=== PATIENT | female | born 1975 | race Caucasian/White ===

== ENCOUNTER 2021-01-30 13:38 | Outpatient (REF) | payer OTHER, SELFPAY | END 2021-01-30 13:39 | disposition home or self-care (01) | LOC: HO.LAB 13:38 | PROVIDERS: PCP Internal Medicine; Visit Provider Internal Medicine | DX: Z20.822 Contact with and (suspected) exposure to COVID-19 (principal) | CPT/HCPCS: C9803; U0003; U0005 ==

== ENCOUNTER 2021-05-23 08:07 | Outpatient (REF) | payer OTHER, SELFPAY ==
[2021-05-23 08:20] LABS: COVID-19 Test Positive (Negative); IDNOW Serial# 16C4AD1C
== END 2021-05-23 08:08 | disposition home or self-care (01) ==
LOC: HO.LAB 08:07
PROVIDERS: Visit Provider Internal Medicine
DX: Z20.822 Contact with and (suspected) exposure to COVID-19 (principal)
CPT/HCPCS: 36415; 87635; C9803

== ENCOUNTER 2021-05-31 11:56 | Outpatient (REF) | payer OTHER, SELFPAY | END 2021-05-31 11:57 | disposition home or self-care (01) | LOC: HO.LAB 11:56 | PROVIDERS: Visit Provider Internal Medicine | DX: Z20.822 Contact with and (suspected) exposure to COVID-19 (principal) | CPT/HCPCS: C9803; U0003; U0005 ==

== ENCOUNTER 2022-04-08 17:35 | Emergency (ER) | payer OTHER, SELFPAY ==
--- NOTE | ~2022-04-08 | CT_ITS ---
EXAMINATION: CT SHOULDER WITHOUT CONTRAST, RIGHT CLINICAL INFORMATION: Suspected fracture of the humerus on plain film. CT recommended. COMPARISON: Plain film exam of the right shoulder today TECHNIQUE: Axial images obtained through the right shoulder. Coronal and sagittal reformatted images performed at CT scanner. This CT examination was performed using dose optimization techniques as appropriate, variously including the following: *Automated exposure control *Adjustment of mA and/or kV according to patient size (this includes techniques or standardized protocols for targeted exams where dose is matched to indication/reason for exam; i.e. extremities or head) *Use of iterative reconstruction technique DLP: 286 mGy-cm FINDINGS: There is a nondisplaced fracture through the base of the greater tuberosity of the right proximal humerus correlating to findings of plain film. No additional fracture. No dislocation. Small volume of fluid in the shoulder joint likely related to the fracture. There is an old healed fracture with callus formation of the anterior right lateral second through fifth ribs. Chronic old changes of corticated osseous densities adjacent to the distal right clavicle. No acute abnormality of the acromioclavicular joint. CT/CT shoulder RT wo IV con IMPRESSION: Nondisplaced fracture through the base of the greater tuberosity of the right proximal humerus.
--- NOTE | ~2022-04-08 | XR_ITS ---
EXAMINATION: XR SHOULDER, RIGHT CLINICAL INFORMATION: Trauma to the shoulder. Pain. COMPARISON: Right shoulder 02/09/2020, 08/27/2017 TECHNIQUE: 4 views. of the right shoulder. FINDINGS: Small faint radiolucent line suspicious for a nondisplaced fracture through the base of the greater tuberosity of the humeral head. No dislocation. Chronic changes of the distal clavicle with 2 corticated densities, 1 inferior and the other superior to the distal clavicle. No acute abnormality of the acromioclavicular joint XR/XR shoulder RT min 2V IMPRESSION: Suspect the presence of a nondisplaced fracture through the base of the greater tuberosity of the humeral head. CT would be helpful for further definition of the fracture.
[2022-04-08 18:36] VITALS: BP 121/49; PULSE 97; RESP 18; TEMP 37.1; O2SAT 97; BMI 23.8
--- NOTE | 2022-04-08 20:45 | ED.EXTPRO ---
HPI - Extremity Problem General Chief complaint: Extremity Injury, Upper Stated complaint: dislocated R shoulder? Time Seen by Provider: 04/08/22 20:44 Source: patient Mode of arrival: ambulatory Limitations: no limitations History of Present Illness HPI Narrative: 46-year-old female presents for evaluation of severe right shoulder and arm pain after walking her dog. Her dog pulled on the leash, leash wrapped around her arm, and since that injury patient is unable to move her arm. She does not describe any loss of sensation or loss of hand strength. She does not report any other injuries or medical complaints. MD Complaint: extremity pain Onset (ago): hour(s) (Within the hour of arrival) Pain Consistency: constant Location: right and upper extremity Severity scale (1-10): 8 Quality: aching Radiation: distal Relieving factors: rest Exacerbating factors: range of motion and palpation Associated symptoms: denies other symptoms Related Data Previous Rx's Medication Instructions Recorded oxycodone 5 mg tablet 5 mg PO Q6H PRN pain #14 tabs 04/08/22 Allergies Allergy/AdvReac Type Severity Reaction Status Date / Time No Known Allergies Allergy Unverified 02/25/20 15:13 Review of Systems Review of Systems: Constitutional: No Fever, No Chills ENT/Mouth: No Ear Pain, No Hoarseness, No sore throat Eyes: No Eye Pain, No Swelling, No Redness, No Foreign Body Cardiovascular: No Chest Pain, No SOB Respiratory: No Cough, No Dyspnea Gastrointestinal: No Nausea, No Vomiting, No Diarrhea, No abdominal Pain Genitourinary: No Dysuria, No Hematuria Musculoskeletal: positive right shoulder pain, No Myalgias, No Joint Swelling Skin: No Skin lacerations, No rash Neuro: No Weakness, No Numbness, No Paresthesias, No Loss of Consciousness, No Dizziness, No Headache Psych: No Anxiety/Panic, No Depression Heme/Lymph: no easy bruising, no Lymphadenopathy Endocrine: No Polyuria, No Polydipsia Yes all other systems are reviewed and are negative [facility] Past Medical History Attestation statement: The following information was validated with the patient. Source: old records reviewed Social History Social History Advance Directives: No Advance Directives Information Provided: No Physical Exam Vital Signs: Vital Signs: Last Vital Signs Temp 98.8 F 04/08/22 18:36 Pulse 97 04/08/22 18:36 Resp 18 04/08/22 18:36 BP 121/49 L 04/08/22 18:36 Pulse Ox 97 04/08/22 18:36 O2 Del Method 04/08/22 18:36 BMI result Body Mass Index 23.8 Appearance: Alert. Oriented X3. Moderate distress. Eyes: Pupils equal, round and reactive to light. ENT: Pharynx normal. Neck: Normal inspection. Neck supple. CVS: Normal heart rate and rhythm. Pulses normal. Respiratory: No respiratory distress. Breath sounds normal. Abdomen: Soft and nontender. Skin: Skin warm and dry. Normal skin color. Normal skin turgor. Extremities: Decreased active and passive range of motion to the right upper extremity. Tenderness at the acromion process, no clavicular pain to palpation. No crepitus. [employer] Systems Administrator strengths are bilaterally equal, radial pulse and capillary refill equal bilaterally. Neuro: No motor deficit. No sensory deficit. Cranial nerves 2-12 intact. Course Course Course Narrative: 46-year-old female presents for injury sustained while walking her dog. The dog pulled her arm and then the leash end up dropping up around her arm. She has had a difficult time raising her arm, and has had to support with the other arm for comfort. She is neurovascularly intact, has decreased active range of motion, all passive range of motion is painful, range of motion pain radiates to from the acromion process down to the olecranon. Significant tenderness with minimal palpation to the acromion process and proximal humerus, no tenderness to the clavicle or scapula. X-rays completed while patient was the emergency department waiting room, there is a suspicion of a hairline fracture through the greater tuberosity of the humerus. CT scan was recommended. I did discuss these findings with the patient, who agrees to CT scan. At this time will order sling for suspected proximal humerus fracture and possible rotator cuff injury. 22:45 CT scan indicates nondisplaced fracture through the base of the greater tuberosity of the right proximal humerus, small volume of fluid in the shoulder likely related to the fracture. Patient is able to get a ride home, will give oxycodone for pain management. Patient understands that she must follow-up with orthopedics for evaluation. Patient verbalized understanding of and agrees to plan of care discharge home. Verbalized understanding of signs and symptoms indicating need for emergent intervention. MDM - Extremity (Nontraumatic) MDM Narrative Medical decision making narrative: Fracture, dislocation, effusion, labrum tear, rotator cuff injury Medical Records Attestation: I reviewed the patient's medical records. Imaging Data Shoulder x-ray: Attestation: I personally reviewed and interpreted this imaging study as follows: Radiologist's impression: EXAMINATION: XR SHOULDER, RIGHT CLINICAL INFORMATION: Trauma to the shoulder. Pain.? COMPARISON: Right shoulder 02/09/2020, 08/27/2017? TECHNIQUE: 4 views. of the right shoulder. FINDINGS: Small faint radiolucent line suspicious for a nondisplaced fracture through the base of the greater tuberosity of the humeral head. No dislocation. Chronic changes of the distal clavicle with 2 corticated densities, 1 inferior and the other superior to the distal clavicle. No acute abnormality of the acromioclavicular joint XR/XR shoulder RT min 2V IMPRESSION: Suspect the presence of a nondisplaced fracture through the base of the greater tuberosity of the humeral head. CT would be helpful for further definition of the fracture. CT shoulder: Attestation: I personally reviewed and interpreted this imaging study as follows: Radiologist's impression: FINDINGS: There is a nondisplaced fracture through the base of the greater tuberosity of the right proximal humerus correlating to findings of plain film. No additional fracture. No dislocation. Small volume of fluid in the shoulder joint likely related to the fracture. There is an old healed fracture with callus formation of the anterior right lateral second through fifth ribs. Chronic old changes of corticated osseous densities adjacent to the distal right clavicle. No acute abnormality of the acromioclavicular joint. CT/CT shoulder RT wo IV con IMPRESSION: Nondisplaced fracture through the base of the greater tuberosity of the right proximal humerus. ? Discharge Plan Discharge Clinical Impression: Fracture of humerus Patient Disposition: Home, Self-Care Instructions: Arm Fracture in Adults (ED), How to Use a Sling (ED) Additional Instructions: You were evaluated for right shoulder pain. X-ray and CT scan indicate a nondisplaced fracture through the base of the greater tuberosity of the right proximal humerus. Please follow-up with orthopedics. I have referred you to Yecenia GRAYSON. Please call and request an appointment. Keep sling in place for comfort. I prescribed oxycodone. This medication is a narcotic and has high risk for addiction and abuse. This medication can delay reaction time, increased risk for falls, cause drowsiness and constipation. Do not drive or operate machinery while taking this medication. Take MiraLax and or Colace while taking this medication to prevent constipation. Drink plenty of fluids. Thank you for choosing this emergency department for evaluation. Please follow-up with primary care physician as needed. Return to the emergency department for any new, concerning, or worsening symptoms. Prescriptions: New oxycodone 5 mg tablet 5 mg PO Q6H PRN (Reason: pain) Qty: 14 0RF Rx Instructions: Partial Fill upon patient request. Right humerus fracture Referrals: Yecenia Newman PA-C [Physician Internal Communications Writer] - 1 week (right humerus fracture ) Stand Alone Forms: Work/School Release Interventions: ED Discharge Assessment Last Done: 04/08/22 22:59 Discharge Date/Time: 04/08/22 23:00
[2022-04-08] MEDS: Ketorolac Tromethamine 60 MG/2 ML VIAL IM (21:43)
[2022-04-08] MEDS: oxyCODONE HCl Immed Release 5 MG TABLET PO (22:01)
== END 2022-04-08 23:00 | disposition home or self-care (01) ==
PROVIDERS: Emergency Provider Emergency Medicine; PCP Internal Medicine
DX: S42.254A Nondisplaced fracture of greater tuberosity of right humerus, initial encounter for closed fracture (principal); X50.0XXA Overexertion from strenuous movement or load, initial encounter; Y93.K1 Activity, walking an animal; Y92.414 Local residential or business street as the place of occurrence of the external cause; Y99.9 Unspecified external cause status
CPT/HCPCS: 73030; 73200; 96372; 99283; 99284; J1885

== ENCOUNTER 2022-04-12 07:08 | Outpatient (REF) | payer OTHER, SELFPAY | END 2022-04-12 07:09 | disposition home or self-care (01) | LOC: HO.HOSX 07:08 | PROVIDERS: Visit Provider Physician Assistant | DX: S42.251A Displaced fracture of greater tuberosity of right humerus, initial encounter for closed fracture (principal); X58.XXXA Exposure to other specified factors, initial encounter; Y93.K1 Activity, walking an animal; Y92.9 Unspecified place or not applicable; Y99.9 Unspecified external cause status | CPT/HCPCS: 99202 ==

== ENCOUNTER 2022-05-10 | Outpatient (REF) | payer OTHER, SELFPAY ==
--- NOTE | ~2022-05-10 | XR_ITS ---
EXAMINATION: XR SHOULDER, RIGHT CLINICAL INFORMATION: Pain COMPARISON: Previous x-ray and CT March 2022 TECHNIQUE: Three views of the right shoulder. FINDINGS: There is increased sclerosis of the greater tuberosity suggestive of healing nondisplaced fracture. There are small soft tissue ossifications just superior to the humerus that are stable. The glenohumeral joint is normal. The acromioclavicular joint is upper normal measuring 8 mm. There are well-corticated soft tissue ossifications adjacent to the right distal clavicle that are stable suggestive of old trauma. XR/XR shoulder RT min 2V IMPRESSION: Healing nondisplaced right greater tuberosity fracture.
== END 2022-05-10 00:01 | disposition home or self-care (01) ==
LOC: HO.HOSX
PROVIDERS: Visit Provider Physician Assistant
DX: S42.251A Displaced fracture of greater tuberosity of right humerus, initial encounter for closed fracture (principal)
CPT/HCPCS: 73030; 99212

== ENCOUNTER 2022-06-21 14:00 | Outpatient (REF) | payer OTHER, SELFPAY ==
--- NOTE | ~2022-06-21 | XR_ITS ---
EXAMINATION: XR SHOULDER, RIGHT CLINICAL INFORMATION: Pain in unspecified shoulder COMPARISON: 05/10/2022 TECHNIQUE: Three views of the right shoulder. FINDINGS: Healing fracture of the greater tuberosity again noted. Unchanged well-corticated ossific fragments adjacent the distal clavicle. Unchanged widening of the acromiohumeral joint distance. Visualized right lung and ribs are normal. XR/XR shoulder RT min 2V IMPRESSION: Continued healing of known fracture of the greater tuberosity of the humerus.
== END 2022-06-21 14:01 | disposition home or self-care (01) ==
LOC: HO.HOSX 14:00
PROVIDERS: Visit Provider Orthopaedic Surgery
DX: S42.251D Displaced fracture of greater tuberosity of right humerus, subsequent encounter for fracture with routine healing (principal)
CPT/HCPCS: 73030; 99212

== ENCOUNTER 2022-08-06 08:37 | Outpatient (REF) | payer OTHER, SELFPAY ==
--- NOTE | ~2022-08-06 | XR_ITS ---
EXAMINATION: XR SHOULDER, RIGHT CLINICAL INFORMATION: Right shoulder pain. COMPARISON: None TECHNIQUE: Two views of the right shoulder. XR/XR shoulder RT min 2V FINDINGS/IMPRESSION: Question mild deformity of the distal end of right clavicle with mild associated dystrophic calcification, possibly related to remote trauma and/or remote surgery. Approximately 0.7 cm distance between the acromion and distal end of the clavicle, with the acromion depressed by approximately 0.8 cm. These findings appear unchanged compared with 06/21/2022. Previous identified nondisplaced fracture of the greater tuberosity of the humerus is not appreciated on the current study. Glenohumeral joint space and alignment appear unremarkable. No soft tissue swelling identified.
== END 2022-08-06 08:38 | disposition home or self-care (01) ==
LOC: HO.HOSX 08:37
PROVIDERS: Visit Provider Orthopaedic Surgery
DX: S42.251A Displaced fracture of greater tuberosity of right humerus, initial encounter for closed fracture (principal)
CPT/HCPCS: 73030; 99212

== ENCOUNTER 2022-08-31 09:00 | Outpatient (RCR) | payer OTHER, SELFPAY ==
--- NOTE | 2022-12-21 12:42 | MHC.PT.DC ---
[facility] [place] Office [place] [facility] [place] Office [address] Alicia Lopez [address] [phone] F: [phone] F: [phone] F: [phone] F: [phone] Physical Therapy Discharge Report Diagnosis: FX OF GREATER TUBEROSITY OF R HUMERUS. Date of Surgery: NA Date of Evaluation: 05/01/22 Date of Discharge: 12/21/22 Treatments to Date: 20 Cancellations to Date: No Shows to Date: Discharge Status: Achieved Goals Independent with HEP Discharge Summary: PER LAST PT NOTE ASSESSMENT ON 08/31/22 HAS MET MOST PT GOALS. HAS HEP. TO SEE ORTHO IN ~3WKS. TO CALL AFTER NO FURTHER VISITS SCHEDULED Electronically signed by: MIGUELITO PEOPLES PT Please sign and return to therapist. Thank you for your referral.
== END 2022-12-21 12:43 | disposition home or self-care (01) ==
LOC: HO.PT 09:00
PROVIDERS: Visit Provider Physician Assistant
DX: S42.251A Displaced fracture of greater tuberosity of right humerus, initial encounter for closed fracture (principal)
CPT/HCPCS: 97014; 97110; 97140; 97162; 97535

== ENCOUNTER 2022-09-17 08:16 | Outpatient (REF) | payer OTHER, SELFPAY ==
--- NOTE | ~2022-09-17 | XR_ITS ---
EXAMINATION: XR SHOULDER, RIGHT CLINICAL INFORMATION: Right shoulder pain. COMPARISON: Right shoulder 02/09/2020, 08/06/2022. TECHNIQUE: AP external rotation, Grashey, scapular Y, and axillary views of the right shoulder. FINDINGS: The bones and soft tissues are normal. There is small bony fragment/calcification superior to the lateral clavicle, question old injury. Glenohumeral alignment is anatomic with normal joint space. There is mild grade 1 separation likely a remote injury as was noted on previous study 02/09/2020. No abnormal soft tissue calcifications. XR/XR shoulder RT min 2V IMPRESSION: 1. Small bone fragment superior to the lateral acromion, question old injury. It is unchanged since 02/09/2020. 2. Mild grade 1 AC separation is stable since 2019. 3. No visible new acute fracture, dislocation or subluxation seen.
== END 2022-09-17 08:17 | disposition home or self-care (01) ==
LOC: HO.HOSX 08:16
PROVIDERS: Visit Provider Orthopaedic Surgery
DX: S42.251A Displaced fracture of greater tuberosity of right humerus, initial encounter for closed fracture (principal)
CPT/HCPCS: 73030; 99212

== ENCOUNTER 2022-10-15 07:14 | Outpatient (REF) | payer OTHER, SELFPAY ==
--- NOTE | ~2022-10-15 | MR_ITS ---
EXAMINATION: MR SHOULDER WITHOUT CONTRAST, RIGHT CLINICAL INFORMATION: Displaced fracture of greater tuberosity of humerus. Patient reports fall and history of right clavicle fracture. COMPARISON: X-rays and CT 03/2022. Additional x-rays of the right shoulder and clavicle dating back to 08/2017. TECHNIQUE: MRI of the shoulder without contrast was performed on a high-field scanner. FINDINGS: ROTATOR CUFF: SUPRASPINATUS: There is a partial-thickness intrasubstance insertional tear involving the middle one-third portion of the supraspinatus tendon. The tear measures 3 mm transverse and 4 mm AP. See coronal image 11, series 6 and sagittal image 4, series 3. Additional mild heterogeneity of the remaining portion of the tendon is compatible with tendinosis. No atrophy of fatty infiltration of the muscle. Remaining rotator cuff muscles and tendons are normal. BICEPS: Normal. CORACOACROMIAL ARCH: There is mild widening of the AC joint compatible with an old AC joint separation, unchanged compared with prior examinations. Mildly curved undersurface of the acromion, no subacromial spur. BURSA: Trace fluid in the subacromial subdeltoid bursa. LABRUM/CAPSULE: Mild heterogeneity of the superior labrum likely reflects some mild degenerative change but no definite tear. GLENOHUMERAL JOINT/MARROW: No fracture identified with specific attention made to the greater tuberosity given history of fracture. Mild joint effusion and synovitis. MR/MR shoulder RT wo con IMPRESSION: 1. Small partial-thickness intrasubstance insertional tear of the supraspinatus the tendon. 2. Mild subacromial subdeltoid bursitis. 3. Old AC joint separation. 4. No fracture identified with specific attention made to the greater tuberosity given the history of fracture.
== END 2022-10-15 07:15 | disposition home or self-care (01) ==
LOC: HO.MRI 07:14
PROVIDERS: PCP Internal Medicine; Visit Provider Orthopaedic Surgery
DX: S42.251A Displaced fracture of greater tuberosity of right humerus, initial encounter for closed fracture (principal); X58.XXXA Exposure to other specified factors, initial encounter; Y93.9 Activity, unspecified; Y92.9 Unspecified place or not applicable; Y99.9 Unspecified external cause status
CPT/HCPCS: 73221

== ENCOUNTER → 2022-10-22 08:40 | Outpatient (BNVA) | payer OTHER, SELFPAY | PROVIDERS: PCP Internal Medicine; Visit Provider Orthopaedic Surgery | DX: M75.101 Unspecified rotator cuff tear or rupture of right shoulder, not specified as traumatic (principal); S42.251D Displaced fracture of greater tuberosity of right humerus, subsequent encounter for fracture with routine healing | CPT/HCPCS: 20610; 99212; J1100 ==

== ENCOUNTER → 2022-12-03 08:24 | Outpatient (BNVA) | payer OTHER, SELFPAY | PROVIDERS: PCP Internal Medicine; Visit Provider Orthopaedic Surgery | DX: M75.101 Unspecified rotator cuff tear or rupture of right shoulder, not specified as traumatic (principal); Z87.81 Personal history of (healed) traumatic fracture | CPT/HCPCS: 99212 ==

== ENCOUNTER 2023-03-04 08:22 | Outpatient (AMB) | payer OTHER, SELFPAY ==
--- NOTE | 2023-03-04 08:25 | MHC.OFFVIS ---
Intake Vital Signs 03/04/23 08:38 Height 5 ft 2 in Weight 130 lb BMI 23.8 Intake Visit Reasons: OV - Right Humerus Fracture - DOI 04/08/22 Intake Note: Gladys is a 47 year old female who presents today for a follow up of right humerus fracture, DOI 04/08/22. At her last visit it was discussed that she has a partial thickness supraspinatus tear, is to continue strengthening, ROM and NASAID. States she has cont' to work on her strength and ROM at home with some improvement. Allergies No Known Allergies Allergy (Verified 03/04/23 08:38) HPI OV - Right Humerus Fracture - DOI 04/08/22 HPI Details Gladys (Nevin) is a 47 year old woman who returns to discuss her right RTC tear. She is ~4 month S/P steroid injection & 11 months S/P right proximal humerus fx, which has healed well. She continues to complain of pain with daily and overhead activities, but she says this is improved from taking NSAIDs throughout the day. She says her nighttime symptoms have improved but she continues to have pain at night. She says overhead lifting is difficult for her, and she is frustrated by her shoulder snapping & popping all the time. She does say she had some improvement for a short period after a session of hot yoga, but she says this was difficult for her otherwise. She says if she forgets her NSAIDs she is not able to function due to her pain. She says her previous injection gave her ~4 days of pain relief. She continues to work on ROM and strengthening exercises at home. She has been using her arm for daily activities while avoiding any heavy lifting. She works primarily administering Dialysis and says she has not returned to work since her injury. She says she is unable to lift patients or some of the required medical equipment to perform her job. She would like to discuss surgery. [facility] Medical History High blood pressure Social History Alcohol intake: never Patient Tobacco Use Status: Former Tobacco user Current occupational status: employed Current occupation: Dialysis Nurse / right hand dominant Review of Systems Const All systems reviewed & are unremarkable except as noted in HPI and below Physical Exam Vital Signs: BMI result Body Mass Index 23.8 Const General: no acute distress, alert and awake Orientation/consciousness: patient oriented x3 HEENT Head: Yes normocephalic and Yes atraumatic Eyes EOM: EOMs intact bilaterally Resp Effort & Inspection: normal respiratory effort and able to speak in complete sentences Cardio Jugular venous distension: no JVD Skin General skin exam: turgor normal Rashes: no rashes Neuro General: patient oriented x3 Extrem Other: Right Shoulder: Pain with empty can testing 4+/5 strength 90/45/125/S1 Psych Appearance: grossly normal Affect: normal affect Attitude: cooperative Results Reviewed Results Reviewed: I personally reviewed relevant MR images 1.? Small partial-thickness intrasubstance insertional tear of the supraspinatus tendon. ? 2.? Mild subacromial subdeltoid bursitis. ? 3.? Old AC joint separation. ? 4.? No fracture identified with specific attention made to the greater tuberosity given the history of fracture.? Assessment & Plan Assessment & Plan (1) Impingement syndrome of right shoulder: Code(s): M75.41 - Impingement syndrome of right shoulder (2) Tear of right rotator cuff: Code(s): M75.101 - Unspecified rotator cuff tear or rupture of right shoulder, not specified as traumatic Plan: This is a 46 year old woman with a partial-thickness tear of the right supraspinatus & is S/P right proximal humerus fracture, DOI: 04/08/22. She has good improvements in her ROM and use of her shoulder, including her nighttime pain, but she remains limited by pain in her daily activities, particularly with lifting activities. She manages her pain with NSAIDs and has poor function due to pain if she does not. She continues to display weakness and pain. 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 I discussed her diagnosis and treatment options. I recommend she continue to take NSAIDs, work on strengthening exercises, and use her arm for daily activities. She should continue to limit or avoid any heavy lifting or overhead activities at this time. If she continues to have pain we may discuss surgery in the future. She will follow up in 3 months. (3) Fracture of greater tuberosity of right humerus: Code(s): S42.251A - Displaced fracture of greater tuberosity of right humerus, initial encounter for closed fracture Plan: Right proximal humerus fracture, DOI: 04/08/22, healed on radiographs. Plan Scribed for Arsen Gandara MD by Madhav Kaur director of medical education, on 03/04/23 at 9:00 AM, EST. Coding Level of Care Code Est Pt Level 4 (03604) Diagnoses Impingement syndrome of right shoulder M75.41 Tear of right rotator cuff M75.101 Fracture of greater tuberosity of right humerus S42.251A
[2023-03-04 08:38] VITALS: BMI 23.8
== END 2023-03-04 09:14 | disposition home or self-care (01) ==
PROVIDERS: PCP Internal Medicine; Visit Provider Orthopaedic Surgery
DX: S42.251D Displaced fracture of greater tuberosity of right humerus, subsequent encounter for fracture with routine healing (principal); M75.41 Impingement syndrome of right shoulder; M75.101 Unspecified rotator cuff tear or rupture of right shoulder, not specified as traumatic
CPT/HCPCS: 99213

== ENCOUNTER → 2023-03-04 08:22 | Outpatient (BNVA) | payer OTHER, SELFPAY | PROVIDERS: PCP Internal Medicine; Visit Provider Orthopaedic Surgery | DX: S42.251D Displaced fracture of greater tuberosity of right humerus, subsequent encounter for fracture with routine healing (principal); M75.41 Impingement syndrome of right shoulder; M75.101 Unspecified rotator cuff tear or rupture of right shoulder, not specified as traumatic | CPT/HCPCS: 99212 ==

== ENCOUNTER 2023-05-17 08:41 | Emergency (ER) | payer OTHER, SELFPAY ==
--- NOTE | ~2023-05-17 | XR_ITS ---
EXAMINATION: XR CHEST CLINICAL INFORMATION: Chest pain COMPARISON: None TECHNIQUE: 2 views of the chest were obtained. FINDINGS: No significant abnormality is noted involving the heart, lungs, mediastinum, bony thorax or soft tissues. XR/XR chest 2V IMPRESSION: Unremarkable examination.
--- NOTE | ~2023-05-17 | CT_ITS ---
EXAMINATION: CT HEAD WITHOUT CONTRAST CLINICAL INFORMATION: Hypertension, dizziness COMPARISON: None available. TECHNIQUE: Contiguous axial imaging was performed from the skull base to vertex without intravenous administration of contrast. This CT examination was performed using dose optimization techniques as appropriate, variously including the following: *Automated exposure control *Adjustment of mA and/or kV according to patient size (this includes techniques or standardized protocols for targeted exams where dose is matched to indication/reason for exam; i.e. extremities or head) *Use of iterative reconstruction technique DLP: 613 mGy-cm FINDINGS: Gabriel-white matter differentiation is preserved. No evolving infarct, mass lesion, mass effect, midline shift, hemorrhage or extra-axial fluid collections are identified. Basal ganglia calcifications. Intraorbital structures are unremarkable. Sinuses and mastoids are free of disease. Left-sided nasal spur. Bony structures are intact. Soft tissues are unremarkable. CT/CT head/brain wo IV con IMPRESSION: No acute intracranial pathology.
--- NOTE | 2023-05-17 08:50 | ED.GENADULT ---
HPI - General Adult General Chief complaint: Dizziness Stated complaint: high bp Time Seen by Provider: 05/17/23 08:50 Source: patient Mode of arrival: ambulatory Limitations: no limitations History of Present Illness HPI narrative: Patient is a 47 year old assigned female at with a history of HTN, not currently on medications, and hypokalemia, not currently on supplements presenting to the emergency department today feeling generally unwell with elevated blood pressure readings at home. Patient states that over the last few days she has felt like her blood pressure is high and has taken some doses of her HCTZ here and there. Patient states that she was told 1 year ago she no longer had to take her HCTZ or potassium. Patient denies any current dizziness, lightheadedness, abdominal pain, nausea, vomiting, fever, chills, blurry vision, double vision, loss of vision, chest pain, difficulty breathing, shortness of breath, back pain, night sweats, pain with urination, increased urinary frequency, increased urinary urgency, blood in her urine or stool, syncope or a near syncopal episode, recent trauma or falls, bowel incontinence, bladder incontinence, bowel retention, bladder retention, or any other complaints at this time. Onset (ago): day(s) Relieving factors: none Exacerbating factors: none Associated symptoms: denies other symptoms Treatments prior to arrival: other (HCTZ intermittently) Related Data Home Medications Medication Instructions Recorded Confirmed ibuprofen 800 mg tablet 800 mg PO Q8H PRN pain 08/06/22 Previous Rx's Medication Instructions Recorded hydrochlorothiazide 25 mg tablet 25 mg PO DAILY #30 tabs 05/17/23 Allergies Allergy/AdvReac Type Severity Reaction Status Date / Time No Known Allergies Allergy Verified 05/17/23 08:56 Review of Systems Constitutional: Constitutional: Reports no additional constitutional complaints, Denies chills, Denies fever(s) and Denies night sweats Eyes: Eyes: Reports no additional eye complaints, Denies blurry vision, Denies change in vision, Denies diplopia, Denies eye discharge, Denies loss of vision and Denies eye pain ENT: Denies dizziness Cardiovascular: Cardiovascular: Reports no additional cardiovascular complaints, Denies chest pain, Denies lightheadedness, Denies Loss of Consciousness and Denies dyspnea Respiratory: Respiratory: Reports no additional respiratory complaints and Denies dyspnea Gastrointestinal: Gastrointestinal: Reports no additional gastrointestinal complaints, Denies abdominal pain, Denies melena, Denies hematochezia, Denies change in bowel habits and Denies change in stool character Genitourinary: Genitourinary: Denies hematuria, Denies urinary frequency, Denies dysuria, Denies urinary incontinence, Denies urinary hesitancy and Denies urinary urgency Musculoskeletal: Musculoskeletal: Reports no additional musculoskeletal complaints, Denies numbness and Denies tingling Neurologic: Denies dizziness, Denies loss of vision, Denies numbness and Denies tingling Psychiatric: Psychiatric: Reports no additional psychiatric complaints Endocrine: Endocrine: Reports no additional endocrine complaints Hematologic/Lymphatic: Hematologic/Lymphatic: Reports no additional hematologic/lymphatic complaints Allergic/Immunologic: Allergic/Immunologic: Reports no additional allergic/immunologic complaints PMFSH Past Medical History Attestation statement: The following information was validated with the patient. Source: old records reviewed and nursing notes reviewed Medical History High blood pressure Social History Social History Alcohol intake: current Alcohol intake frequency: holidays/special occasions only Patient Tobacco Use Status: Former Tobacco user Smoked in Last 30 Days: Yes Use of substances other than those prescribed or required for medical reasons: No Advance Directives: No Advance Directives Information Provided: Yes Patient : No Current occupational status: employed Current occupation: Dialysis Nurse / right hand dominant Physical Exam ED Vital Signs: Vital Signs - 24 hr 05/17/23 08:52 05/17/23 09:00 05/17/23 09:00 Temperature 98.3 F Pulse Rate 129 H 129 H Pulse Rate [Monitor] 102 H Respiratory Rate 16 16 Blood Pressure 195/117 H 195/117 H Pulse Oximetry 98 98 Oxygen Delivery Method Room Air Room Air 05/17/23 09:17 05/17/23 10:47 05/17/23 11:47 Temperature 98.9 F 99.4 F Pulse Rate 91 92 81 Pulse Rate [Monitor] Respiratory Rate 16 20 11 L Blood Pressure 167/135 H 158/95 H 152/86 H Pulse Oximetry 97 98 97 Oxygen Delivery Method Room Air Room Air Room Air BMI result Body Mass Index 21.9 Const General: cooperative, no acute distress, alert and awake Nutritional Appearance: well nourished Orientation/consciousness: patient oriented x3 Limitations: no limitations HENMT Head: Yes normal to inspection and Yes atraumatic Ears: hearing grossly normal bilaterally and external ears normal General nose exam: Normal external nose present, no nasal discharge noted and no epistaxis Face and sinus: Yes normal facial exam, No abrasion and No laceration Mouth: Normal oral and palatal mucosa present, no drooling and no muffled voice Eyes General: appearance normal, both eyes and all related structures Periorbital: periorbital findings normal Eyelids: Yes eyelids normal Conjunctivae: conjunctivae normal Pupils: Equal, round and reactive pupils present EOM: EOMs intact bilaterally Neck Neck: Yes normal visual inspection, Yes full ROM and Yes no lymphadenopathy Chest Chest palpation & inspection: normal inspection of the chest Resp Effort & Inspection: normal respiratory effort and able to speak in complete sentences GI Inspection: Yes normal to inspection Neuro General: patient oriented x3 and moves all extremities Cranial nerves: Yes Equal, round and reactive pupils present Cognition (Neuro): normal cognition Motor exam (neuro): 5/5 motor strength present throughout Sensory Exam: Normal double simultaneous stimulation for sensation Coordination: [id number] test normal Extrem General: Yes normal to inspection, Yes full ROM and Yes capillary refill normal Psych Appearance: grossly normal Mental Status: mental status grossly normal Affect: normal affect Attitude: cooperative Thought process: Normal thought process present Thought content: Normal thought content present Insight: Good insight present (Psych) Medications Administered Discontinued Medications Generic Name Dose Route Start Last Admin Trade Name Freq PRN Reason Stop Dose Admin Hydrochlorothiazide 25 mg 05/17/23 09:04 05/17/23 09:29 Hydrochlorothiazide 25 Mg Tablet PO 05/17/23 09:05 25 mg ONCE ONE Administration Protocol Potassium Chloride 10 meq in 100 mls @ 100 mls/hr 05/17/23 09:45 05/17/23 11:55 Potassium Chloride/H20 IV 05/17/23 11:44 Infused Q1H TRAVON Infusion Ondansetron HCl 4 mg 05/17/23 09:31 05/17/23 10:01 Ondansetron Hcl 4 Mg/2 Ml Vial IVPUSH 05/17/23 09:32 4 mg ONCE ONE Administration Potassium Chloride 40 meq 05/17/23 09:44 05/17/23 10:01 Potassium Chloride Packet 20 Meq Packet PO 05/17/23 09:45 40 meq ONCE ONE Administration Medical Decision Making Medical Decision Making [facility] Narrative: Patient is a 47 year old assigned female at with a history of HTN and hypokalemia presenting to the emergency department today with HTN and hypokalemia. Patient's physical exam was unremarkable. Patient's blood work showed hypokalemia of 2.9 but was otherwise unremarkable. Patient's urine showed no acute process. Patient's EKG was unremarkable. Patient's chest x-ray and head CT showed no acute process. I explained my physical exam findings as well as all test results to the patient. I answered all questions asked by the patient. Patient was given a dose of HCTZ as well as PO and IV Potassium. Patient's blood pressure improved greatly. Patient's potassium also improved to 4.4. I stressed the importance of the patient taking her medication as prescribed. I stressed the importance of the patient following up with her primary care provider. I stressed the importance of the patient returning to the emergency department immediately if her symptoms were to worsen or if she were to develop any dizziness, shortness of breath, difficulty breathing, chest pain, blurry vision, loss of vision, nausea, vomiting, abdominal pain, fever, chills, back pain, or any other complaints. Patient verbalized agreement and understanding with this treatment plan and discharge. Differential Diagnosis Differential Diagnoses: The differential diagnosis associated with the presentation includes HTN STEMI NSTEMI Hypokalemia Admission/Observation Consideration of admission/observation: Escalation of care including admission/observation considered Patient would have been admitted to the hospital had her work up had any findings where hospital admission was appropriate and her clinical presentation warranted hospital admission. Lab Data [facility] Lab Attestation statement: I reviewed the patient's lab results. My interpretation of these results are in the [facility] Rationale portion of this note. 05/17/23 09:13 05/17/23 11:51 Labs: Lab Results 05/17/23 05/17/23 05/17/23 Range/Units 09:13 09:24 11:51 WBC 5.6 (4.8-10.8) X10*3/uL RBC 4.17 L (4.20-5.50) X10*6/uL Hgb 13.7 (12.0-16.0) g/dl Hct 38.8 (37.0-47.0) % MCV 93.0 (80.0-98.0) fL MCH 32.9 (27.0-33.0) pg MCHC 35.3 H (31.0-35.0) g/dl RDW 13.2 (11.0-16.0) % Plt Count 145 L (160-400) X10*3/uL MPV 9.3 L (9.4-12.3) fL Immature Gran % (Auto) 0.2 (0.0-0.4) % Neut % (Auto) 65.5 (45-73) % Lymph % (Auto) 24.1 (20-40) % [place] % (Auto) 9.8 (2-11) % Eos % (Auto) 0.2 (0-4) % Baso % (Auto) 0.2 (0-2) % Lymph # (Auto) 1.4 (1.2-4.9) X10*3/uL [place] # (Auto) 0.6 (0.1-1.2) X10*3/uL Eos # (Auto) 0.0 (0.0-0.4) X10*3/uL Baso # (Auto) 0.0 (0.0-0.2) X10*3/uL Abs Immat Gran (auto) 0.01 (0.00-0.03) X10*3/uL Absolute Neuts (auto) 3.7 (2.0-8.3) x10*3/uL Absolute Nucleated RBC 0.000 (0.0-0.012) X10*3/uL Nucleated RBC % (auto) 0.0 (0.0-0.2) /100WBC PT 11.9 (11.1-13.3) SEC INR 1.0 (0.9-1.1) APTT 29.6 (26.0-36.4) SEC Sodium 140 141 (135-145) mmol/L Potassium 2.9 L 4.4 D (3.3-5.1) mmol/L Chloride 104 109 H (96-108) mmol/L Carbon Dioxide 23 24 (22-29) mmol/L Anion Gap 16 12 (12-20) BUN 6 L 5 L (9-16) mg/dL Creatinine 0.68 0.65 (0.5-1.4) mg/dL Estim Creat Clear Calc 91.0 95.2 Estimated GFR > 60 > 60 Random Glucose 134 H 94 (60-115) mg/dL Calcium 9.6 9.1 (8.4-10.2) mg/dL Magnesium 1.6 (1.6-2.6) mg/dL Total Bilirubin 1.0 0.8 (0.0-1.0) mg/dL AST 25 24 (5-31) U/L ALT 17 16 (0-31) U/L Alkaline Phosphatase 92 87 (39-117) U/L Troponin I High Sens < 2.7 (<3.5-17.0) ng/L Total Protein 7.5 7.1 (6.5-8.0) g/dL Albumin 4.8 4.6 (3.5-5.0) g/dL Beta HCG, Quant < 2 mIU/mL Urine Color Yellow Urine Appearance Clear Urine pH 6.0 (5.0-9.0) Ur Specific [place] 1.015 (1.005-1.025) Urine Protein Trace (Neg-Trace) mg/dL Urine Glucose (UA) Negative (Negative) mg/dL Urine Ketones Trace (Negative) mg/dL Urine Blood Trace H (Negative) Urine Nitrite Negative (Negative) Ur Leukocyte Esterase Trace H (Negative) Urine RBC 0-2 (0-2) /HPF Urine WBC 0-5 (0-5) /HPF Ur Squamous Epith Cells 6-10 (0-2) /HPF Urine Bacteria None Seen (None Seen) Hyaline Casts 0-2 (0-2) /LPF Influenza Type A (PCR) NEGATIVE (Negative) Influenza Type B (PCR) NEGATIVE (Negative) RSV RNA Qual (PCR) NEGATIVE (Negative) SARS-CoV-2 RNA (RT-PCR) NEGATIVE (Negative) Independent Interpretation I performed an independent interpretation of an: EKG, Plain X-Ray and CT Scan Interpretation: My interpretation is in agreement with the radiologist's impression of these imaging studies. EXAMINATION: CT HEAD WITHOUT CONTRAST CLINICAL INFORMATION: Hypertension, dizziness COMPARISON: None available. TECHNIQUE: Contiguous axial imaging was performed from the skull base to vertex without intravenous administration of contrast. This CT examination was performed using dose optimization techniques as appropriate, variously including the following: *Automated exposure control *Adjustment of mA and/or kV according to patient size (this includes techniques or standardized protocols for targeted exams where dose is matched to indication/reason for exam; i.e. extremities or head) *Use of iterative reconstruction technique DLP: 613 mGy-cm FINDINGS: Gabriel-white matter differentiation is preserved. No evolving infarct, mass lesion, mass effect, midline shift, hemorrhage or extra-axial fluid collections are identified. Basal ganglia calcifications. Intraorbital structures are unremarkable. Sinuses and mastoids are free of disease. Left-sided nasal spur. Bony structures are intact. Soft tissues are unremarkable. CT/CT head/brain wo IV con IMPRESSION: No acute intracranial pathology. Dictated By: Stephenie Molina MD Signed By: Electronically signed by Stephenie Molina MD 05/17/23 1044 EXAMINATION: XR CHEST CLINICAL INFORMATION: Chest pain COMPARISON: None TECHNIQUE: 2 views of the chest were obtained. FINDINGS: No significant abnormality is noted involving the heart, lungs, mediastinum, bony thorax or soft tissues. XR/XR chest 2V IMPRESSION: Unremarkable examination. Dictated By: Stephenie Molina MD Signed By: Electronically signed by Stephenie Molina MD 05/17/23 1010 Vent. Rate: 090 BPM Atrial Rate: 090 BPM P-R Int: 132 ms QRS Dur: 090 ms QT Int: 398 ms P-R-T Axes: 015 016 051 degrees QTc Int: 486 ms Normal sinus rhythm Prolonged QT Abnormal ECG When compared with ECG of 21-NOV-2015 22:23, Questionable change in QRS axis DD/ [id number] Radiology Impression Discussion of test interpretation with radiology: I have reviewed the radiologist's reading. Chronic Conditions Patient?s care impacted by: Hypertension Critical Care Time Critical Care Time Critical Care Time: Yes Total Critical Care Time: 35 Attestation: I spent 35 minutes of Critical Care Time with this patient. This does not include time spent on separately reported billable procedures. Discharge Plan Discharge Clinical Impression: Hypertension, Acute hypokalemia Patient Disposition: Home, Self-Care Instructions: Hypokalemia (ED), Hypertension (ED) Additional Instructions: Follow up with your primary care provider. Return to the emergency department immediately if your symptoms worsen or if you develop any dizziness, shortness of breath, difficulty breathing, chest pain, blurry vision, loss of vision, nausea, vomiting, abdominal pain, fever, chills, back pain, or any other complaints. Prescriptions: New hydrochlorothiazide 25 mg tablet 25 mg PO DAILY Qty: 30 0RF No Action ibuprofen 800 mg tablet 800 mg PO Q8H PRN (Reason: pain) Referrals: Anne Montoya MD [Primary Care Provider] - Interventions: ED Discharge Assessment Last Done: 05/17/23 12:37 Print Language: Montserratian
[2023-05-17 08:52] VITALS: BP 195/117; PULSE 129; RESP 16; TEMP 36.8; O2SAT 98; BMI 21.9
--- NOTE | 2023-05-17 08:58 | PC.NURSE ---
Pt reports dizziness/haziness, however, was able to drive herself here to ED this AM without complication. Pt initially stated no N/V/D; now stating she has been feeling nauseous.
[2023-05-17 09:00] VITALS: BP 195/117; PULSE 102; PULSE 129; RESP 16; O2SAT 98
--- NOTE | 2023-05-17 09:02 | ECG_ITS ---
Test Reason : dizziness Blood Pressure : / mmHG Vent. Rate : 090 BPM Atrial Rate : 090 BPM P-R Int : 132 ms QRS Dur : 090 ms QT Int : 398 ms P-R-T Axes : 015 016 051 degrees QTc Int : 486 ms Normal sinus rhythm Prolonged QT Abnormal ECG When compared with ECG of 21-NOV-2015 22:23, Questionable change in QRS axis Referred By: Opal Mahoney Electronically Signed By:CAMILLE FISCHER
[2023-05-17 09:17] VITALS: BP 167/135; PULSE 91; RESP 16; TEMP 37.2; O2SAT 97
[2023-05-17 09:17] LABS: MANUAL DIFF FLAG NO
[2023-05-17 09:27] LABS: Basophils Percent Auto 0.2 % (0-2); Eosinophils Percent Auto 0.2 % (0-4); Hematocrit 38.8 % (37.0-47.0); Hemoglobin 13.7 g/dl (12.0-16.0); Imm Gran Abs Auto 0.01 X10*3/uL (0.00-0.03); Imm Gran Pct Auto 0.2 % (0.0-0.4); Lymphocytes Absolute Auto 1.4 X10*3/uL (1.2-4.9); Lymphocytes Percent Auto 24.1 % (20-40); Mean Corpuscular HGB Conc 35.3 g/dl (31.0-35.0); Mean Corpuscular Hemoglobin 32.9 pg (27.0-33.0); Mean Platelet Volume 9.3 fL (9.4-12.3); Monocytes Absolute Auto 0.6 X10*3/uL (0.1-1.2); Monocytes Percent Auto 9.8 % (2-11); Neutrophils Absolute Auto 3.7 x10*3/uL (2.0-8.3); Neutrophils Percent Auto 65.5 % (45-73); Platelet Count 145 X10*3/uL (160-400); Red Blood Count 4.17 X10*6/uL (4.20-5.50); Red Cell Distribution Width 13.2 % (11.0-16.0); White Blood Count 5.6 X10*3/uL (4.8-10.8)
[2023-05-17] MEDS: hydroCHLOROthiazide 25 MG TABLET PO (09:29)
--- NOTE | 2023-05-17 09:31 | PC.NURSE ---
Pt c/o nausea; states she was dry heaving . Provider notified. Orders to follow
[2023-05-17 09:32] LABS: Prothrombin Time 11.9 SEC (11.1-13.3)
[2023-05-17 09:33] LABS: Appearance Urine Clear; Color Urine Yellow; Glucose Urine UA Negative (Negative); Leukocyte Esterase Urine Trace (Negative); Nitrite Urine Negative (Negative); Specific Gravity - Urine 1.015 (1.005-1.025); UMIC TRIGGER UACC YES; Urine Blood Trace (Negative); Urine Ketones Trace mg/dL (Negative); Urine Protein Trace mg/dL (Neg-Trace)
[2023-05-17 09:35] LABS: Bacteria Urine None Seen (None Seen); Hyaline Casts Urine 0-2 /LPF (0-2); RBC Urine 0-2 /HPF (0-2); WBC Urine 0-5 /HPF (0-5)
[2023-05-17 09:35] LABS: Partial Thromboplastin Time 29.6 SEC (26.0-36.4)
[2023-05-17 09:40] LABS: Alanine Aminotransferase 17 U/L (0-31); Albumin Level 4.8 g/dL (3.5-5.0); Alkaline Phosphatase 92 U/L (39-117); Anion Gap 16 (12-20); Aspartate Amino Transferase 25 U/L (5-31); Blood Urea Nitrogen 6 mg/dL (9-16); Calcium 9.6 mg/dL (8.4-10.2); Carbon Dioxide 23 mmol/L (22-29); Chloride 104 mmol/L (96-108); Estimated Glomerular Filt Rate > 60; Glucose Random 134 mg/dL (60-115); Magnesium 1.6 mg/dL (1.6-2.6); Potassium 2.9 mmol/L (3.3-5.1); Sodium 140 mmol/L (135-145); Total Protein 7.5 g/dL (6.5-8.0)
[2023-05-17 09:43] LABS: HCG Quantitative < 2 mIU/mL; Troponin-I High Sensitivity < 2.7 ng/L (<3.5-17.0)
[2023-05-17] MEDS: Potassium Chloride Packet 20 MEQ PACKET 40 MEQ PO (10:01)
[2023-05-17] MEDS: ondansetron HCL 4 MG/2 ML VIAL IVPUSH (10:01)
[2023-05-17] MEDS: Potassium Chloride/H20 10 MEQ/100 ML PIGGYBACK 100 MEQ IV ×2 (10:01→11:00)
[2023-05-17 10:04] LABS: Influenza A PCR NEGATIVE (Negative); Influenza B PCR NEGATIVE (Negative); Resp Syncy Virus RNA Qual PCR NEGATIVE (Negative); SARS COV2 PCR INHOUSE NEGATIVE (Negative)
[2023-05-17 10:47] VITALS: BP 158/95; PULSE 92; RESP 20; O2SAT 98
[2023-05-17 11:47] VITALS: BP 152/86; PULSE 81; RESP 11; TEMP 37.4; O2SAT 97
[2023-05-17 12:16] LABS: Alanine Aminotransferase 16 U/L (0-31); Albumin Level 4.6 g/dL (3.5-5.0); Alkaline Phosphatase 87 U/L (39-117); Anion Gap 12 (12-20); Aspartate Amino Transferase 24 U/L (5-31); Bilirubin Total 0.8 mg/dL (0.0-1.0); Blood Urea Nitrogen 5 mg/dL (9-16); Calcium 9.1 mg/dL (8.4-10.2); Carbon Dioxide 24 mmol/L (22-29); Chloride 109 mmol/L (96-108); Creatinine Clr Calc Pharmacy 95.2; Estimated Glomerular Filt Rate > 60; Glucose Random 94 mg/dL (60-115); Potassium 4.4 mmol/L (3.3-5.1); Sodium 141 mmol/L (135-145); Total Protein 7.1 g/dL (6.5-8.0)
== END 2023-05-17 12:47 | disposition home or self-care (01) ==
PROVIDERS: Physician Assistant Medical; Emergency Provider Emergency Medicine; PCP Internal Medicine
DX: E87.6 Hypokalemia (principal); R42 Dizziness and giddiness; R07.89 Other chest pain; I10 Essential (primary) hypertension; Z20.822 Contact with and (suspected) exposure to COVID-19; Z20.828 Contact with and (suspected) exposure to other viral communicable diseases; Z87.891 Personal history of nicotine dependence; Z79.899 Other long term (current) drug therapy
CPT/HCPCS: 0241U; 36415; 70450; 71046; 80053; 81001; 83735; 84484; 84702; 85025; 85610; 85730; 93005; 96365; 96366; 96375; 99285; J2405; J3480

== ENCOUNTER → 2023-05-17 09:02 | Outpatient (BNV) | payer OTHER, SELFPAY | PROVIDERS: Emergency Provider Emergency Medicine; PCP Internal Medicine; Visit Provider Internal Medicine | DX: I45.81 Long QT syndrome (principal) | CPT/HCPCS: 93010 ==

== ENCOUNTER 2023-06-13 08:36 | Outpatient (AMB) | payer OTHER, SELFPAY ==
--- NOTE | 2023-06-13 08:38 | MHC.OFFVIS ---
Intake Intake Visit Reasons: OV- Right RTC Tear, DOI 04/08/22 Intake Note: Gladys is a 47 year old right hand dominant female who presents today for a follow up of Right Rotator Cuff Tear DOI 04/08/2022. She is also s/p Right humerus fracture DOI 04/08/22. At her last visit it was discussed that she has a partial thickness supraspinatus tear ,she is to avoid heavy lifting and overhead activities. If symptoms do not improve, discuss surgery. Allergies No Known Allergies Allergy (Verified 06/13/23 08:40) HPI OV- Right RTC Tear, DOI 04/08/22 HPI Details Gladys (Nevin) is a 47 year old woman who returns to discuss her right RTC tear. She is ~7 month S/P steroid injection & S/P right proximal humerus fx, DOI: 04/08/22, which has healed well. She continues to complain of pain with daily and overhead activities, particularly lifting activities, but she says this is improved from taking NSAIDs throughout the day. She says her nighttime symptoms have improved but she continues to have pain at night. She says her previous injection gave her ~4 days of pain relief. She continues to work on ROM and strengthening exercises at home. She has been using her arm for daily activities while avoiding any heavy lifting. She works primarily administering Dialysis and says she has not returned to work since her injury. She says she is unable to lift patients or some of the required medical equipment to perform her job. Surgery was discussed at her last appointment if she continued to have pain. [facility] Medical History High blood pressure Social History Alcohol intake: current Alcohol intake frequency: holidays/special occasions only Patient Tobacco Use Status: Former Tobacco user Current occupational status: employed Current occupation: Dialysis Nurse / right hand dominant Review of Systems Const All systems reviewed & are unremarkable except as noted in HPI and below Physical Exam Const General: no acute distress, alert and awake Orientation/consciousness: patient oriented x3 HEENT Head: Yes normocephalic and Yes atraumatic Eyes EOM: EOMs intact bilaterally Resp Effort & Inspection: normal respiratory effort and able to speak in complete sentences Cardio Jugular venous distension: no JVD Skin General skin exam: turgor normal Rashes: no rashes Neuro General: patient oriented x3 Extrem Other: 45/90/130/L5 4+/5 EC + H/N +O'yolanda's Psych Appearance: grossly normal Affect: normal affect Attitude: cooperative Results Reviewed Results Reviewed: I personally reviewed the MR images. Small partial-thickness intrasubstance insertional tear of the supraspinatus the tendon. 2. Mild subacromial subdeltoid bursitis. 3. Old AC joint separation. Assessment & Plan Assessment & Plan (1) Impingement syndrome of right shoulder: Code(s): M75.41 - Impingement syndrome of right shoulder (2) Tear of right rotator cuff: Code(s): M75.101 - Unspecified rotator cuff tear or rupture of right shoulder, not specified as traumatic Plan: This is a 47 yo F with 1+year history of a right shoulder fall and a non displaced greater tuberosity fracture. She had a difficult time with an extended recovery and continues to have pain at night and with overhead activity. Her exam and MRI are c/w RTC weakness and sa impingment. She has tried PT and injections with only mild relief. I recommend rotator cuff repair with sa decompression. I explained the surgery and the risks, benefits and alternatives including, but not limited to, stiffness, pain, infection, weakness, need for further surgery and extended recovery. I answered all her questions. (3) Fracture of greater tuberosity of right humerus: Code(s): S42.251A - Displaced fracture of greater tuberosity of right humerus, initial encounter for closed fracture Plan Scribed for Arsen Gandara MD by Madhav Kaur, medical liaison, on 06/13/23 at 8:50 AM, EST. Coding Level of Care Code Est Pt Level 4 (25753) Diagnoses Impingement syndrome of right shoulder M75.41 Tear of right rotator cuff M75.101 Fracture of greater tuberosity of right humerus S42.251A
== END 2023-06-13 09:26 | disposition home or self-care (01) ==
PROVIDERS: PCP Internal Medicine; Visit Provider Orthopaedic Surgery
DX: M75.41 Impingement syndrome of right shoulder (principal); M75.101 Unspecified rotator cuff tear or rupture of right shoulder, not specified as traumatic; S42.251A Displaced fracture of greater tuberosity of right humerus, initial encounter for closed fracture
CPT/HCPCS: 99214

== ENCOUNTER → 2023-06-13 08:36 | Outpatient (BNVA) | payer OTHER, SELFPAY | PROVIDERS: PCP Internal Medicine; Visit Provider Orthopaedic Surgery | DX: M75.41 Impingement syndrome of right shoulder (principal); M75.101 Unspecified rotator cuff tear or rupture of right shoulder, not specified as traumatic; S42.251D Displaced fracture of greater tuberosity of right humerus, subsequent encounter for fracture with routine healing | CPT/HCPCS: 99212 ==

== ENCOUNTER 2023-08-08 08:28 | Outpatient (AMB) | payer OTHER, SELFPAY ==
--- NOTE | 2023-08-08 08:34 | A.OFFVIS_ITS ---
Intake Intake Visit Reasons: Pre Op Rt Shld RTC 08/14/23 NE Intake Note: Gladys is a 47 year old right hand dominant female who presents today for a pre operative appointment. She is booked for right shoulder RTC Repair 08/14/23 NE. Allergies No Known Allergies Allergy (Verified 06/13/23 08:40) HPI Pre Op Rt Shld RTC 08/14/23 NE HPI Details 47-year-old right hand dominant female w fabio presents in the office today for her preoperative history and physical exam prior to a right shoulder rotator cuff repair to be performed on 08/14/[address] Gandara. Patient has no known allergy history. Patient is currently taking, as follows: -Hydrochlorothiazide 25 mg PO Daily -Ibuprofen 800 mg PO Q8H PRN -Lisinopril 10 mg PO Daily Patient has a medical history, as follows: -Hypertension Patient has no known surgical history. Patient has a social history, as follows: -Patient works as a dialysis nurse. -[facility] Medical History High blood pressure Social History Alcohol intake: current Alcohol intake frequency: holidays/special occasions only Patient Tobacco Use Status: Former Tobacco user Current occupational status: employed Current occupation: Dialysis Nurse / right hand dominant Review of Systems Const All systems reviewed & are unremarkable except as noted in HPI and below Physical Exam Const General: no acute distress, alert and awake Orientation/consciousness: patient oriented x3 HEENT Head: Yes normocephalic and Yes atraumatic Eyes General: appearance normal, both eyes and all related structures EOM: EOMs intact bilaterally Neck Neck: Yes normal visual inspection and Yes no lymphadenopathy Resp Effort & Inspection: normal respiratory effort and able to speak in complete sentences Cardio Jugular venous distension: no JVD Rate: regular rate Peripheral pulses: Peripheral pulses 2+ throughout GI Inspection: Yes normal to inspection Palpation (GI): Soft to palpation Skin General skin exam: turgor normal Rashes: no rashes Neuro General: patient oriented x3 Extrem Other: 45/90/130/L5 4+/5 EC + H/N +O'yolanda's Psych Appearance: grossly normal Mental Status: mental status grossly normal Affect: normal affect Attitude: cooperative Assessment & Plan Assessment & Plan (1) Impingement syndrome of right shoulder: Code(s): M75.41 - Impingement syndrome of right shoulder (2) Tear of right rotator cuff: Code(s): M75.101 - Unspecified rotator cuff tear or rupture of right shoulder, not specified as traumatic (3) Fracture of greater tuberosity of right humerus: Code(s): S42.251A - Displaced fracture of greater tuberosity of right humerus, initial encounter for closed fracture Plan Ms. King is a 47-year-old right hand dominant female who presents in the office today for her preoperative history and physical exam prior to a right shoulder rotator cuff repair to be performed on 08/14/[address] Gandara. Patient has no known allergy history. Patient is currently taking, as follows: -Hydrochlorothiazide 25 mg PO Daily -Ibuprofen 800 mg PO Q8H PRN -Lisinopril 10 mg PO Daily Patient has a medical history, as follows: -Hypertension Patient has no known surgical history. Patient has a social history, as follows: -Patient works as a dialysis nurse. -Former smoker I discussed in detail the procedure and what to expect pre and post operatively. We discussed the risks, benefits and alternatives to the surgery as well as the rehabilitation course. The risks; which include, but are not limited to infection, bleeding, nerve injury, ongoing pain, swelling, and stiffness, perioperative risk of injury to bones and soft tissues, and blood clots. I have answered all questions and with their understanding they have consented to move forward with a right shoulder rotator cuff repair to be performed on 08/14/[address] Arsen Gandara. Follow up will be at the post operative appointment on 08/22/2023 at 2:45 pm, or sooner if needed. Post operative medications was sent to the pharmacy, Oxycodone-acetaminophen 5- 325 (Percocet) PO Q4-6H PRN, quantity 42 tabs for 7 days and Morphine ER (MS Contin) 15 mg PO Q12H PRN, quantity 6 tabs for 3 days, while in the office today. The patient was instructed that she should obtain the prescription prior to surgery but should not consume until after the procedure; as these should only be taken for post operative pain management. Should the patient take these medications prior to surgery a refill will not be sent to the pharmacy until their scheduled refill date. Orders: Orders PT Evaluation and Treatment Today M75.101 - Unspecified rotator cuff tear or rup ture of right shoulder, not specified as traumatic, M75.41 - Impingement syndrome of right shoulder Medications: New morphine ER (MS Contin) Partial Fill upon patient request. 15 mg PO Q12H 3 days 6 tabs 0RF Pain oxycodone-acetaminophen 5-325 mg Partial Fill upon patient request. 1 tab PO Q4-6H 7 days PRN 42 tabs 0RF pain Patient Instructions: Scribed by Zohreh Hayden district medical examiner, for Yecenia Newman PA-C on 08/08/2023 at 9:00 am, EST. Coding Level of Care Code Global (18448) Diagnoses Impingement syndrome of right shoulder M75.41 Tear of right rotator cuff M75.101 Fracture of greater tuberosity of right humerus S42.251A
== END 2023-08-08 10:19 | disposition home or self-care (01) ==
PROVIDERS: PCP Internal Medicine; Visit Provider Physician Assistant
DX: M75.41 Impingement syndrome of right shoulder (principal); M75.101 Unspecified rotator cuff tear or rupture of right shoulder, not specified as traumatic; S42.251A Displaced fracture of greater tuberosity of right humerus, initial encounter for closed fracture
CPT/HCPCS: 99024

== ENCOUNTER → 2023-08-08 08:28 | Outpatient (BNVA) | payer OTHER, SELFPAY | PROVIDERS: PCP Internal Medicine; Visit Provider Physician Assistant | DX: S42.251A Displaced fracture of greater tuberosity of right humerus, initial encounter for closed fracture (principal); M75.41 Impingement syndrome of right shoulder; M75.101 Unspecified rotator cuff tear or rupture of right shoulder, not specified as traumatic | CPT/HCPCS: 99212 ==

== ENCOUNTER 2023-08-14 09:28 | Day surgery (SDC) | payer OTHER, SELFPAY ==
[2023-08-12 09:46] VITALS: BMI 26.4
--- NOTE | 2023-08-13 09:00 | P.CONAN_ITS ---
Documented by User: Sonal Feldman NP 08/13/23 09:08 HPI - Anesthesia Eval Consult details Narrative: 47yo F for Right Arthroscopic Rotator Cuff Repair [facility] [place]2023 for hypokalemia, htn - bp and K levels WNL at PCP f/u visit 06/2023 [facility] Active Problems Active Problems: All Active Problems (Updated 08/12/23 @ 09:51 by Marely Chavira RN) Impingement syndrome of right shoulder (Acute) Tear of right rotator cuff (Acute) Fracture of greater tuberosity of right humerus (Acute) Past Medical History Medical History (Updated 08/12/23 @ 09:51 by Marely Chavira RN) Anxiety Hx of hypokalemia HTN (hypertension) History of seizure (~05/2023) High blood pressure Surgical History Surgical History (Updated 08/12/23 @ 09:50 by Marely Chavira RN) Hx of colonoscopy Social History Social History (Updated 08/12/23 @ 09:50 by Marely Chavira RN) Are you a primary manager intensive care to a significant other at home: No Do you presently have visiting nurse or other home services: No Alcohol intake: current Alcohol intake frequency: holidays/special occasions only Patient Tobacco Use Status: Current everyday Tobacco user Tobacco use type: Cigarette Cigarettes Per Day: 6 Years Smoked: 30 Smoked in Last 30 Days: Yes Have you been hit, kicked, punched, or otherwise hurt by someone within the past year? If so, by whom?: No Are you DNR?: No Advance Directives: No Advance Directives Information Provided: Yes Advance Directives on File: No Recently lost weight without trying: No Nutrition Risks: No Nutritional Risk Patient : No FDLMP: 2018 Current occupational status: employed Current occupation: Dialysis Nurse / right hand dominant Meds Allergies Allergy/AdvReac Type Severity Reaction Status Date / Time No Known Allergies Allergy Verified 06/13/23 08:40 Home Medications Medication Instructions Recorded Confirmed Last Taken Type lisinopril 10 mg tablet 10 mg PO DAILY 06/13/23 08/12/23 Unknown History magnesium citrate 100 mg tablet 400 mg PO BID 08/08/23 08/12/23 Unknown History cyanocobalamin (vitamin B-12) 1,000 mcg PO DAILY 03/04/24 03/04/24 Unknown History 1,000 mcg tablet (Vitamin B-12) Exam Height,Weight and Vital Signs: Height 5 ft 1 in Weight 63.503 kg Pertinent Lab Results Pertinent Lab Results: CBC amd CMP 06/2023 from outside facility Narrative Narrative: EKG 05/2023 Vent. Rate : 090 BPM Atrial Rate : 090 BPM P-R Int : 132 ms QRS Dur : 090 ms QT Int : 398 ms P-R-T Axes : 015 016 051 degrees QTc Int : 486 ms Normal sinus rhythm Prolonged QT Abnormal ECG When compared with ECG of 21-NOV-2015 22:23, Questionable change in QRS axis Assessment and Plan Assessment Anesthesia Assessment: Chart Reviewed Documented by User: Shannon Barraza MD 08/14/23 10:02 [facility] Past Medical History Medical History (Updated 08/12/23 @ 09:51 by Marely Chavira RN) Anxiety Hx of hypokalemia HTN (hypertension) History of seizure (~05/2023) High blood pressure Family History Family history of problems with anesthesia: Yes Surgical History Surgical History (Updated 08/12/23 @ 09:50 by Marely Chavira RN) Hx of colonoscopy History of Problems with Anesthesia: No Social History Social History (Updated 08/12/23 @ 09:50 by Marely Chavira RN) Are you a primary manager intensive care to a significant other at home: No Do you presently have visiting nurse or other home services: No Alcohol intake: current Alcohol intake frequency: holidays/special occasions only Patient Tobacco Use Status: Current everyday Tobacco user Tobacco use type: Cigarette Cigarettes Per Day: 6 Years Smoked: 30 Smoked in Last 30 Days: Yes Have you been hit, kicked, punched, or otherwise hurt by someone within the past year? If so, by whom?: No Are you DNR?: No Advance Directives: No Advance Directives Information Provided: Yes Advance Directives on File: No Recently lost weight without trying: No Nutrition Risks: No Nutritional Risk Patient : No FDLMP: 2018 Current occupational status: employed Current occupation: Dialysis Nurse / right hand dominant Meds Allergies Allergy/AdvReac Type Severity Reaction Status Date / Time No Known Allergies Allergy Verified 06/13/23 08:40 Home Medications Medication Instructions Recorded Confirmed Last Taken Type lisinopril 10 mg tablet 10 mg PO DAILY 06/13/23 08/12/23 Unknown History magnesium citrate 100 mg tablet 400 mg PO BID 08/08/23 08/12/23 Unknown History cyanocobalamin (vitamin B-12) 1,000 mcg PO DAILY 08/12/23 08/12/23 Unknown History 1,000 mcg tablet (Vitamin B-12) Exam Airway Mallampati Class: II TM Dist: >3cm Neck ROM: Full Heart: rrr Lungs: cta Assessment and Plan Final Anesthetic Review Family History of Problems with Anesthesia: Yes History of Problems with Anesthesia: No NPO: Yes ASA Class: II Final Preanesthetic Review: No Changes in Pt Med Stat, Meds/Allgs Chart Reviewed, Consent Obtained/Reviewed and Anes Risks/Benef Reviewed Patient Risk: Intermediate Procedure Risk: Intermediate Anesthetic Plan Anesthetic Plan: GA and Regional Block Disposition: Standard PACU
[2023-08-14 09:50] VITALS: BMI 26.6
[2023-08-14 10:01] LABS: Urine Pregnancy NEGATIVE (NEGATIVE)
[2023-08-14 10:02] LABS: UPreg QC Valid YES
[2023-08-14] MEDS: Lactated Ringers 1,000 ML 100 ML IVCONT (10:15)
--- NOTE | 2023-08-14 10:55 | MHC.SHP ---
Pre-Procedural Eval Section A - 24 Hr Update-Section A only Date of Service: 08/14/23 The patient is an INPATIENT: No Changes since office visit: No Cold of Flu in the past 2 weeks, No New Medical Problems, No Changes in Medication and No Patient answered all questions The patient has been examined within 24 hours of the surgical procedure. The History & Physical has been completed within 30 days and I have reviewed it.: Yes Section B - Complete if H&P > 30 days Chief Complaint: Unspecified rotator cuff tear or rupture of right Allergies: Allergies Allergy/AdvReac Type Severity Reaction Status Date / Time No Known Allergies Allergy Verified 06/13/23 08:40 Plan I have reviewed the history and physical and performed a pertinent physical examination on my patient. No changes have occurred unless specified. Time Spent With Patient Time: Total time managing care of this patient today ____ minutes.
[2023-08-14 12:59] VITALS: BP 152/92; PULSE 114; RESP 16; TEMP 36.6; O2SAT 96
[2023-08-14 13:04] VITALS: BP 143/82; PULSE 96; RESP 16; O2SAT 96
[2023-08-14 13:09] VITALS: BP 135/67; PULSE 89; RESP 16; O2SAT 95
--- NOTE | 2023-08-14 13:21 | P.BOP_ITS ---
Brief Operative Note Date of Service: 08/14/23 Pre-op diagnosis: Right rtc tear Post-op diagnosis: same Procedure: Right rtc repair Implants: Ram and Nephew Helacoil double loaded x2 Ram and Nephew Helacoil knotless 5.0 x 2 Surgeon: Arsen Gandara MD Anesthesia: GETA and local Was an Women'S Studies Professor used for this Procedure?: Yes Women'S Studies Professor: Yecenia Newman Estimated blood loss (mL): 10 IV fluids (mL): 1,000 Pathology: none sent Condition: stable Disposition: PACU
[2023-08-14 13:24] VITALS: BP 142/78; PULSE 75; RESP 16; TEMP 36.8; O2SAT 97
--- NOTE | 2023-08-16 18:13 | W.PM.OPN ---
Operative Note Operative Note Date of Service: 08/14/23 Narrative: Date of Service: 08/14/23 Pre-op diagnosis: Right rtc tear Post-op diagnosis: same Procedure: Right rtc repair Implants: Ram and Nephew Helacoil double loaded x2 Ram and Nephew Helacoil knotless 5.0 x 2 Surgeon: Arsen Gandara MD Anesthesia: GETA and local Was an Operations Developer used for this Procedure?: Yes Operations Developer: Yecenia Newman Estimated blood loss (mL): 10 IV fluids (mL): 1,000 Pathology: none sent Condition: stable Disposition: PACU Procedure in detail: Patient was brought to the operating room and placed the the beach chair position. All bony prominences were well padded and the limb was prepped and draped in standard sterile fashion. A time out was called to identify proper site, proper procedure and proper surgeon. IV antibiotics per weight were administered. I began by making a posterolateral stab incision with a 15 blade. A blunt trochar was placed into the glenohumeral joint and I insufflated the joint with saline and a 30 degree arthroscope was placed. I established an outside- in anterior portal just distal to the biceps tendon. I then began my inspection of the glenohumeral joint. There an intact biceps and labrum. There were no degenerative cartialge changes and the subscapularis was intact. There was however a large PASTA with only thin bursal sided tissue remaining of the subscapularis. I then removed the trochar and entered the subacromial space. A direct lateral portal was then established and I performed a bursectomy. The cuff was then examined. There was essentially a full thickness tear of the supraspinatus with mild retraction. The tear was mobile. I placed two medial row double loaded anchors after using a tap just adjacent to the articular cartilage and then brought the suture limbs ( 8) through the medial cuff. I then debrided the bare area down to bleeding bone and, using a cross bridge configuration, brought 4 limbs to each of two lateral 5.0 anchors. This re-approximated the cuff anatomy anatomically. Once I was satisfied with the repair final images were captured and I removed all instrumentation. Portals were closed with nylon. Patient was placed in an abduction sling, extubated and brought to the recovery room in stable condition. There were no known complications.
== END 2023-08-14 14:25 | disposition home or self-care (01) ==
LOC: HO.SSS 09:29
PROVIDERS: Nurse Practitioner; PCP Internal Medicine; Visit Provider Orthopaedic Surgery
PROC: (CPT 29827; principal; 2023-08-14 11:50)
DX: M75.101 Unspecified rotator cuff tear or rupture of right shoulder, not specified as traumatic (principal); M75.41 Impingement syndrome of right shoulder; I10 Essential (primary) hypertension; E53.8 Deficiency of other specified B group vitamins; R56.9 Unspecified convulsions; Z78.0 Asymptomatic menopausal state; Z79.899 Other long term (current) drug therapy; Z79.1 Long term (current) use of non-steroidal anti-inflammatories (NSAID); F17.210 Nicotine dependence, cigarettes, uncomplicated
CPT/HCPCS: 29827; 29826; 81025; C1713; J0131; J0171; J0665; J0690; J1100; J2250; J2405; J2704; J3010

== ENCOUNTER → 2023-08-14 09:28 | Outpatient (BNV) | payer OTHER, SELFPAY | PROVIDERS: PCP Internal Medicine; Visit Provider Orthopaedic Surgery | DX: M75.101 Unspecified rotator cuff tear or rupture of right shoulder, not specified as traumatic (principal) | CPT/HCPCS: 29827 ==

== ENCOUNTER 2023-08-22 14:28 | Outpatient (AMB) | payer OTHER, SELFPAY ==
--- NOTE | 2023-08-22 14:32 | A.OFFVIS_ITS ---
Intake Vital Signs 08/22/23 14:37 Height 5 ft 1 in Weight 140 lb BMI 26.4 Handedness Right Intake Visit Reasons: PO Rt Shld RTC 08/14/23 NE Intake Note: Gladys is a 47 year old right hand dominant female who presents today for a post op appointment s/p right shoulder RTC 08/14/23 NE. Patient reports she is doing well, however during the day and night she tends to get sharp pain. Allergies No Known Allergies Allergy (Verified 06/13/23 08:40) HPI PO Rt Shld RTC 08/14/23 NE HPI Details 47-year-old right hand dominant female hilary mccarthy returns to the office today for post-op right shoulder RTC repair, 08/14/[address] Gandara. She continues to have sharp pain in her shoulder during the day and night. She is doing well otherwise and has no other concerns today. [facility] Medical History (Updated 08/27/23 @ 19:07 by Silvana Kilpatrick PA-C) Anxiety Hx of hypokalemia HTN (hypertension) History of seizure (~05/2023) High blood pressure Surgical History (Updated 08/12/23 @ 09:50 by Marely Chavira RN) Hx of colonoscopy Social History Are you a primary critical care paramedic to a significant other at home: No Do you presently have visiting nurse or other home services: No Alcohol intake: current Alcohol intake frequency: holidays/special occasions only Patient Tobacco Use Status: Current everyday Tobacco user Tobacco use type: Cigarette Cigarettes Per Day: 6 Years Smoked: 30 Current occupational status: employed Current occupation: Dialysis Nurse / right hand dominant Review of Systems Const All systems reviewed & are unremarkable except as noted in HPI and below Physical Exam Vital Signs: BMI result Body Mass Index 26.4 Extrem Other: Right shoulder: Incision clean, dry and intact. No erythema or drainage. She had good deltoid sensation. Assessment & Plan Assessment & Plan (1) Impingement syndrome of right shoulder: Code(s): M75.41 - Impingement syndrome of right shoulder (2) Tear of right rotator cuff: Code(s): M75.101 - Unspecified rotator cuff tear or rupture of right shoulder, not specified as traumatic Qualifiers: Rotator cuff tear extent: complete Rotator cuff tear trauma status: unspecified whether traumatic Qualified Code(s): M75.121 - Complete rotator cuff tear or rupture of right shoulder, not specified as traumatic Plan Sutures removed today, steri strips applied. She will begin working on physical therapy next week for ROM and periscapular stabilization. She will hold off on RTC strengthening at this time. She will use the sling for a total of 6 weeks postop and see me back in [address] Gandara, sooner if needed. Patient Instructions: Scribed for Silvana Kilpatrick PA-C, by Francesco Royal medical claims processor, on 08/22/2023 at 2:45 PM EST. I, Silvana Kilpatrick PA-C, have personally reviewed and agree with the information entered by the scribe. Coding Level of Care Code Global (37943) Diagnoses Impingement syndrome of right shoulder M75.41 Complete tear of right rotator cuff, unspecified whether traumatic M75.121 Rotator cuff tear extent: complete Rotator cuff tear trauma status: unspecified whether traumatic
[2023-08-22 14:37] VITALS: BMI 26.4
== END 2023-08-22 15:22 | disposition home or self-care (01) ==
PROVIDERS: PCP Internal Medicine; Visit Provider Physician Assistant
DX: M75.41 Impingement syndrome of right shoulder (principal); M75.121 Complete rotator cuff tear or rupture of right shoulder, not specified as traumatic
CPT/HCPCS: 99024

== ENCOUNTER → 2023-08-22 14:28 | Outpatient (BNVA) | payer OTHER, SELFPAY | PROVIDERS: PCP Internal Medicine; Visit Provider Physician Assistant | DX: M75.41 Impingement syndrome of right shoulder (principal); M75.121 Complete rotator cuff tear or rupture of right shoulder, not specified as traumatic; Z48.02 Encounter for removal of sutures | CPT/HCPCS: 99212 ==

== ENCOUNTER 2023-10-10 12:07 | Outpatient (AMB) | payer OTHER, SELFPAY ==
--- NOTE | 2023-10-10 12:28 | MHC.OFFVIS ---
Vital Signs 10/10/23 12:31 Height 5 ft 2 in Weight 140 lb BMI 25.6 Handedness Right Intake Visit Reasons: PO Rt Shld RTC 08/14/23 NE Intake Note: Gladys is a 48 year old right hand dominant female who presents today for a post operative appointment s/p Right RTC Repair 08/14/23. Patient reports she well and continues PT. She has mild discomfort which is relieved with ibuprofen. She missed a few appointments with PT but wants to make those up. Allergies No Known Allergies Allergy (Verified 10/10/23 12:37) HPI HPI PO Rt Shld RTC 08/14/23 NE: Details: Gladys is a 48 year old right hand dominant female who presents today for a post operative appointment s/p Right RTC Repair 08/14/23. Patient reports she well and continues PT. She has mild discomfort which is relieved with ibuprofen. She missed a few appointments with PT but wants to make those up. PFSH Medical History Anxiety Hx of hypokalemia HTN (hypertension) History of seizure (~05/2023) High blood pressure Surgical History Hx of colonoscopy Social History Are you a primary primary care provider to a significant other at home: No Do you presently have visiting nurse or other home services: No Alcohol intake: current Alcohol intake frequency: holidays/special occasions only Patient Tobacco Use Status: Current everyday Tobacco user Tobacco use type: Cigarette Cigarettes Per Day: 6 Years Smoked: 30 Current occupational status: employed Current occupation: Dialysis Nurse / right hand dominant Physical Exam Vital Signs: BMI result Body Mass Index 25.6 Extrem Other: inc c/d/i ER to 25 passive abd to 90 Assessment & Plan Assessment & Plan (1) S/P rotator cuff repair: Code(s): Z98.890 - Other specified postprocedural states Category: Surgical Plan: May d/c/ sling. Progress with PT as per protocol Coding Level of Care Code Global (99628) Diagnoses S/P rotator cuff repair Z98.890
[2023-10-10 12:31] VITALS: BMI 25.6
== END 2023-10-10 12:49 | disposition home or self-care (01) ==
PROVIDERS: PCP Internal Medicine; Visit Provider Orthopaedic Surgery
DX: Z98.890 Other specified postprocedural states (principal)
CPT/HCPCS: 99024

== ENCOUNTER → 2023-10-10 12:07 | Outpatient (BNVA) | payer OTHER, SELFPAY | PROVIDERS: PCP Internal Medicine; Visit Provider Orthopaedic Surgery | DX: Z47.89 Encounter for other orthopedic aftercare (principal); Z98.890 Other specified postprocedural states | CPT/HCPCS: 99212 ==

== ENCOUNTER 2023-11-21 08:12 | Outpatient (AMB) | payer OTHER, SELFPAY ==
--- NOTE | 2023-11-21 08:15 | A.OFFVIS_ITS ---
Vital Signs 11/21/23 08:16 Height 5 ft 2 in Weight 140 lb BMI 25.6 Intake Visit Reasons: OV - Rt Shld RTC 08/14/23 NE Intake Note: Gladys is a 48 year old right hand dominant female who presents today for a new problem visit with complaints of right wrist pain after falling up the stairs yesterday. She was originally scheduled for a routine follow up of her right shoulder s/p Right RTC Repair 08/14/23 but is concerned about her wrist Allergies No Known Allergies Allergy (Verified 11/21/23 08:16) HPI HPI OV - Rt Shld RTC 08/14/23 NE: Details: 48-year-old right hand dominant female who presents in the office today for an evaluation of right wrist pain status post a fall while going up the stairs on 11/20/2023. Patient was originally scheduled for a follow-up of right shoulder rotator cuff repair which was performed on 08/14/[address] Gandara. While in the office today the patient expresses, she is more concerned about being evaluated for the right wrist pain than her follow-up on her right shoulder rotator cuff repair. [facility] Medical History Anxiety Hx of hypokalemia HTN (hypertension) History of seizure (~05/2023) High blood pressure Surgical History Hx of colonoscopy Social History Are you a primary menagerie caretaker to a significant other at home: No Do you presently have visiting nurse or other home services: No Alcohol intake: current Alcohol intake frequency: holidays/special occasions only Patient Tobacco Use Status: Current everyday Tobacco user Tobacco use type: Cigarette Cigarettes Per Day: 6 Years Smoked: 30 Current occupational status: employed Current occupation: Dialysis Nurse / right hand dominant Review of Systems Const All systems reviewed & are unremarkable except as noted in HPI and below Physical Exam Vital Signs: BMI result Body Mass Index 25.6 Const General: cooperative, healthy appearing and no acute distress Resp Effort & Inspection: normal respiratory effort and able to speak in complete sentences Cardio Rate: regular rate Peripheral pulses: Peripheral pulses 2+ throughout GI Palpation (GI): Soft to palpation Skin Lesions: no lesions Rashes: no rashes Extrem Other: Right wrist: ulnar aspect has ecchymosis and tenderness to palpation. Able to perform full wrist ROM with pain. Able to perform full finger flexion, extension, abduction, adduction, finger cross, okay sign, and thumbs up without deficit. Able to make a closed fist. Sensation intact. Capillary refill is brisk. Radial pulse intact. Right shoulder: Forward flexion and abduction to end range. NVI. Assessment & Plan Assessment & Plan (1) S/P rotator cuff repair: Comment: 08/14/2023 NE Code(s): Z98.890 - Other specified postprocedural states Category: Surgical (2) Contusion of right wrist: Code(s): S60.211A - Contusion of right wrist, initial encounter Category: Medical Plan Ms. King is a 48-year-old right hand dominant female who presents in the office today for an evaluation of right wrist pain status post a fall while going up the stairs on 11/20/2023. Patient was originally scheduled for a follow-up of right shoulder rotator cuff repair which was performed on 08/14/[address] Gandara. While in the office today the patient expresses, she is more concerned about being evaluated for the right wrist pain than her follow-up on her right shoulder rotator cuff repair. Right wrist: The patient was given a velcro wrist splint, off the shelf, to allow the wrist to rest. She should wear this for the next two weeks and then she can discontinue as pain allows. Right shoulder: The patient will continue to attend physical therapy. She can progress to strengthening at this time. Follow-up will be in 6 weeks, or sooner if needed. X-rays of the right wrist which were obtained while in the office today and were reviewed by me, Yecenia Newman PA-C, revealed no acute fracture or dislocation. Orders: Orders XR wrist RT w scaphoid Today M79.641 - Pain in right hand Patient Instructions: Scribed by Zohreh Hayden medical biller/coder, for Yecenia Newman PA-C on 11/21/2023 at 8:48 am, EST. Coding Level of Care Code Est Pt Level 4 (26311) Diagnoses S/P rotator cuff repair Z98.890 Contusion of right wrist S60.211A
[2023-11-21 08:16] VITALS: BMI 25.6
== END 2023-11-21 09:41 | disposition home or self-care (01) ==
PROVIDERS: PCP Internal Medicine; Visit Provider Physician Assistant
DX: S60.211A Contusion of right wrist, initial encounter (principal)
CPT/HCPCS: 99213

== ENCOUNTER 2023-11-21 08:12 | Outpatient (REF) | payer OTHER, SELFPAY ==
--- NOTE | ~2023-11-21 | XR_ITS ---
EXAMINATION: XR WRIST, RIGHT CLINICAL INFORMATION: Right wrist pain COMPARISON: None. TECHNIQUE: 4 views of the right wrist FINDINGS: No acute fracture or malalignment. No significant degenerative findings. No radiopaque body. XR/XR wrist RT w scaphoid IMPRESSION: No acute fracture or malalignment.
== END 2023-11-21 08:13 | disposition home or self-care (01) ==
LOC: HO.HOSX 08:12
PROVIDERS: PCP Internal Medicine; Visit Provider Orthopaedic Surgery
DX: M79.641 Pain in right hand (principal)
CPT/HCPCS: 73110; 99212

== ENCOUNTER 2023-12-24 09:00 | Outpatient (RCR) | payer OTHER, SELFPAY ==
--- NOTE | 2023-09-06 09:56 | MHC.PT.EP ---
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 Pt is deemed an appropriate candidate to receive skilled PT services to address their physical impairments in order to improve their functional ability. Frequency and Duration: The patient will be seen 2 x/ wk x 10 wks. Short Term Goals: Initiate home program. R shoulder flexion to at least 159 degrees. Pt will progress to RTC strengthening per ortho. Intermediate Goals: I with home program. SPADI outcome measure improved by at least 13 points. Pt will be able to place objects on high shelves with managed Sx. Pt will be able to dress pullovers with managed Sx. Pt will be able to dress and wash her hair with managed Sx. Treatment Plan: Modalities to reduce pain, spasms and effusion. Manual therapy to restore motion and function. Therapeutic exercise to improve strength and flexibility. Neuromuscular re-education for posture and balance. Therapeutic activities to return to functional activities of daily living. Electronically signed by: Holger Wadsworth PT. Please sign and return to therapist. Thank you for your referral.
--- NOTE | 2024-03-13 15:35 | MHC.PT.DC ---
[facility] [place] Office [place] Office [place] Office [address] Alicia Lopez [address] [phone] F: [phone] F: [phone] F: [phone] F: [phone] Physical Therapy Discharge Report Diagnosis: RTC Date of Surgery: 08/14/2023 Date of Evaluation: 08/28/23 Date of Discharge: 03/13/24 Treatments to Date: 19 Cancellations to Date: 6 No Shows to Date: 1 Discharge Status: Improved Function Independent with HEP Patient Elected to Stop Discharge Summary: . Electronically signed by: Holger Wadsworth PT. Please sign and return to therapist. Thank you for your referral.
== END 2024-03-13 15:25 | disposition home or self-care (01) ==
LOC: HO.PT 09:00
PROVIDERS: PCP Internal Medicine; Visit Provider Orthopaedic Surgery
DX: M75.41 Impingement syndrome of right shoulder (principal); M75.101 Unspecified rotator cuff tear or rupture of right shoulder, not specified as traumatic
CPT/HCPCS: 97014; 97110; 97140; 97161; 97530

== ENCOUNTER 2024-01-06 09:29 | Outpatient (AMB) | payer OTHER, SELFPAY ==
--- NOTE | 2024-01-06 09:33 | MHC.OFFVIS ---
Vital Signs 01/06/24 09:37 Height 5 ft 2 in Weight 140 lb BMI 25.6 Intake Visit Reasons: OV - Rt Shld RTC 08/14/23 NE Intake Note: Gladys is a 47 year old right hand dominant female who presents today for a post op appointment s/p right shoulder RTC 08/14/23 NE. Patient reports that the right shoulder has improved. She is no longer having pain but is feeling significant weakness. She reports dropping things due to the weakness and poor operations support professionals strength. Allergies No Known Allergies Allergy (Verified 11/21/23 08:16) HPI HPI OV - Rt Shld RTC 08/14/23 NE: Details: Overall Gladys is doing well. She is almost 6 months status post right rotator cuff repair. She is maybe 18 months status post proximal humerus fracture. She states her pain is well controlled but she still feels weak. She wants to return to the gym. She is no longer doing physical therapy because her insurance is no longer painful. [facility] Medical History Anxiety Hx of hypokalemia HTN (hypertension) History of seizure (~05/2023) High blood pressure Surgical History Hx of colonoscopy Social History Are you a primary healthcare facility administrator to a significant other at home: No Do you presently have visiting nurse or other home services: No Alcohol intake: current Alcohol intake frequency: holidays/special occasions only Patient Tobacco Use Status: Current everyday Tobacco user Tobacco use type: Cigarette Cigarettes Per Day: 6 Years Smoked: 30 Current occupational status: employed Current occupation: Dialysis Nurse / right hand dominant Physical Exam Vital Signs: BMI result Body Mass Index 25.6 Extrem Other: Negative empty can Full range of motion 4+/5 external rotation at 0 Negative lift-off Assessment & Plan Assessment & Plan (1) S/P rotator cuff repair: Comment: 08/14/2023 NE Code(s): Z98.890 - Other specified postprocedural states Category: Surgical Plan: Gladys is doing well but still weak. This is to be expected given how long she has been dealing with this shoulder injury. I recommend gentle strengthening exercises demonstrated these to per. She should follow up in 3-4 months. Coding Level of Care Code Est Pt Level 3 (08094) Diagnoses S/P rotator cuff repair Z98.890
[2024-01-06 09:37] VITALS: BMI 25.6
== END 2024-01-06 10:05 | disposition home or self-care (01) ==
PROVIDERS: PCP Internal Medicine; Visit Provider Orthopaedic Surgery
DX: Z47.89 Encounter for other orthopedic aftercare (principal); M75.101 Unspecified rotator cuff tear or rupture of right shoulder, not specified as traumatic
CPT/HCPCS: 99213

== ENCOUNTER → 2024-01-06 09:29 | Outpatient (BNVA) | payer OTHER, SELFPAY | PROVIDERS: PCP Internal Medicine; Visit Provider Orthopaedic Surgery | DX: R53.1 Weakness (principal); Z98.890 Other specified postprocedural states | CPT/HCPCS: 99212 ==

== ENCOUNTER 2024-03-16 14:03 | Outpatient (AMB) | payer OTHER, SELFPAY ==
--- NOTE | 2024-03-16 14:15 | MHC.OFFVIS ---
Vital Signs 03/16/24 14:16 Height 5 ft 2 in Weight 140 lb BMI 25.6 Intake Visit Reasons: OV-Right shoulder pain/limited of ROM Intake Note: Gladys is a 47 year old right hand dominant female who presents today for a follow up appointment s/p right shoulder RTC 08/14/23 NE. Patient reports that she is doing well, she woke up a few weeks ago with significant pain in the right shoulder that radiated up her neck to the base of her skull. She states that she does not recall any injury, just that she may have slept wrong. The pain was limiting her ROM of the shoulder and her neck, she was not able to get a sooner appointment with ortho so she was seen at her Chiropractor which was helpful. She has been using heat application and Ibuprofen Allergies No Known Allergies Allergy (Verified 11/21/23 08:16) HPI HPI OV-Right shoulder pain/limited of ROM: Details: Gladys is a 47 year old right hand dominant female who presents today for a follow up appointment s/p right shoulder RTC 08/14/23 NE. Patient reports that she is doing well, she woke up a few weeks ago with significant pain in the right shoulder that radiated up her neck to the base of her skull. She states that she does not recall any injury, just that she may have slept wrong. The pain was limiting her ROM of the shoulder and her neck, she was not able to get a sooner appointment with ortho so she was seen at her Chiropractor which was helpful. She has been using heat application and Ibuprofen PFSH Medical History Anxiety Hx of hypokalemia HTN (hypertension) History of seizure (~05/2023) High blood pressure Surgical History Hx of colonoscopy Social History Are you a primary plant health care technician to a significant other at home: No Do you presently have visiting nurse or other home services: No Alcohol intake: current Alcohol intake frequency: holidays/special occasions only Patient Tobacco Use Status: Current everyday Tobacco user Tobacco use type: Cigarette Cigarettes Per Day: 6 Years Smoked: 30 Current occupational status: employed Current occupation: Dialysis Nurse / right hand dominant Physical Exam Vital Signs: BMI result Body Mass Index 25.6 Extrem Other: 4+/5 EC with min pain 30/90/130/S1 Assessment & Plan Assessment & Plan (1) S/P rotator cuff repair: Comment: 08/14/2023 NE Code(s): Z98.890 - Other specified postprocedural states Category: Surgical Plan: Gladys continues to improve. There is some limitation in scapular motion and she has difficulty with combined overhead abduction. I recommend continued strengthening and range of motion. Follow up as needed. Coding Level of Care Code Est Pt Level 3 (77370) Diagnoses S/P rotator cuff repair Z98.890
[2024-03-16 14:16] VITALS: BMI 25.6
== END 2024-03-16 14:54 | disposition home or self-care (01) ==
PROVIDERS: PCP Internal Medicine; Visit Provider Orthopaedic Surgery
DX: M25.511 Pain in right shoulder (principal)
CPT/HCPCS: 99213

== ENCOUNTER → 2024-03-16 14:03 | Outpatient (BNVA) | payer OTHER, SELFPAY | PROVIDERS: PCP Internal Medicine; Visit Provider Orthopaedic Surgery | DX: M25.511 Pain in right shoulder (principal); Z98.890 Other specified postprocedural states | CPT/HCPCS: 99212 ==

== ENCOUNTER 2024-06-18 08:45 | Outpatient (AMB) | payer OTHER, SELFPAY ==
[2024-06-18 08:57] VITALS: BMI 25.6
--- NOTE | 2024-06-18 08:57 | MHC.OFFVIS ---
Vital Signs 06/18/24 08:57 Height 5 ft 2 in Weight 140 lb BMI 25.6 Intake Visit Reasons: OV-Rt Shld RTC 08/14/23 NE-F/U Intake Note: Gladys is a 48 year old right hand dominant female who presents today for a follow up of her right shoulder. S/P Right Shoulder RTC Repair 08/14/2023. Patient reports that she is doing well, she continues to struggle with weakness and fatigue of the right shoulder. When working on strengthening she has aching. She is waking up at night with numbness and tingling in the right hand, she believes that this may be cause by her neck. Allergies No Known Allergies Allergy (Verified 06/18/24 08:57) HPI HPI OV-Rt Shld RTC 08/14/23 NE-F/U: Details: Diagnoses 10 months status post right rotator cuff repair. She is doing well. She still has a little stiffness and occasional pain but feels overall quite well. She does complain of bilateral hand numbness at night. [facility] Medical History (Updated 06/18/24 @ 09:19 by Arsen Gandara MD) Anxiety Hx of hypokalemia HTN (hypertension) History of seizure (~05/2023) High blood pressure Surgical History (Updated 06/18/24 @ 09:02 by Jalyn Ziegler CMA) S/P rotator cuff repair (08/14/23) Hx of colonoscopy Social History Are you a primary administrator health care facility to a significant other at home: No Do you presently have visiting nurse or other home services: No Alcohol intake: current Alcohol intake frequency: holidays/special occasions only Patient Tobacco Use Status: Current everyday Tobacco user Tobacco use type: Cigarette Cigarettes Per Day: 6 Years Smoked: 30 Current occupational status: employed Current occupation: Dialysis Nurse / right hand dominant Physical Exam Vital Signs: BMI result Body Mass Index 25.6 Extrem Other: 30/90/130/S1 Assessment & Plan Assessment & Plan (1) S/P rotator cuff repair: Onset Date: 08/14/23 Comment: 08/14/2023 NE Code(s): Z98.890 - Other specified postprocedural states Category: Medical Plan: s/p RTC tear after trauma. Overall doing quite well. Continue activity as tolerated. Follow up p.r.n. (2) Bilateral hand numbness: Code(s): R20.0 - Anesthesia of skin Category: Medical Plan: Cock-up night splints given. If worsens we will refer to Hand. Coding Level of Care Code Est Pt Level 3 (51249) Diagnoses S/P rotator cuff repair Z98.890 Bilateral hand numbness R20.0
--- OUTSIDE RECORDS SUMMARY | 2024-06-18 09:00 | XMS_ITS | Continuity of Care Document ---
Author Organization [facility] Ayo nicolette Address [address] [place] [address] [address] [place] [address]- Care Team Providers Care Court Crier Name Role Phone Noah Yost MD Primary Care Physician [phone] Encounter [facility] Date(s): 04/21/24 - 05/21/24 [facility] [address] [place] [id number] Encounter Type: Triage Allergies, Adverse Reactions, Alerts No Known Medication Allergies Patient Care team information Care Team Personnel Name: oNah Yost MD Position: Reference Physician Member Role: PCP Address: [address] [place] [id number] Telecom: Care Team Related Persons Name: BRI LAUGHLIN Insurance Providers Guarantor name: NANCY Health Plan Information #: 1 Payer: [facility] Member Number: NA Policy Number: NA Group Number: NA Health Plan Information #: 2 Payer: [facility] Member Number: NA Policy Number: NA Group Number: NA
== END 2024-06-18 09:26 | disposition home or self-care (01) ==
PROVIDERS: PCP Internal Medicine; Visit Provider Orthopaedic Surgery
DX: Z47.89 Encounter for other orthopedic aftercare (principal); M75.101 Unspecified rotator cuff tear or rupture of right shoulder, not specified as traumatic; R20.0 Anesthesia of skin
CPT/HCPCS: 99213

== ENCOUNTER → 2024-06-18 08:45 | Outpatient (BNVA) | payer OTHER, SELFPAY | PROVIDERS: PCP Internal Medicine; Visit Provider Orthopaedic Surgery | DX: R20.0 Anesthesia of skin (principal); Z98.890 Other specified postprocedural states | CPT/HCPCS: 99212 ==